=== PATIENT | male | born 1935 | race Caucasian/White ===

== ENCOUNTER 2017-02-03 21:05 | Inpatient (IN) | payer OTHER ==
[~2017-02-03] VITALS: Ht 177.8 cm; Wt 153.5 kg
[~2017-02-03 21:05] MED LIST: A&D OINTMENT60 GM PO; ACETAMINOPHEN325 M1 PO; ADVAIR HFA120 INHALA IH; ALTACE2.5 MG PO; AMIODARONE HCL200 MG PO; AMITIZA24 MICROGR PO; ANALGESIC BALM28 GM TP; ANIMAL CHEWS1 EACH PO; ANTIFUNGAL POWDER TP; ANTIFUNGAL15 G1 TP; ASPIR-LOW81 MG PO; ASPIRIN81 M1; ASPIRIN81 M2 PO; ATHENOL325 MG PO; Advair HFA 115/21 IH; Ancef,Kefzol IV; Aspirin E.C. PO; BACTRIM,SEPT1 TABLET PO; BALANCE; BALANCE MM; BALANCE PO; BAYER CHEWABLE81 MG PO; BENGAY ULTRA S113 GM TP; BIOTENE ORALBAL42 GM MM; CALCIUM 600 +1 EA16 PO; CALCIUM 600 +1 EAC2 PO; CALCIUM WITH V1 EAC2 PO; CAPOTEN; CAPOTEN12.5 MG PO; CARVEDILOL6.25 MG PO; CEFDINIR300 MG PO; CEFEPIME HCL1 GM IV; CEFEPIME HCL1 GM PO; CENTRUM SILVER1 EAC3 PO; CHILDREN'S ASPI81 M1 PO; CHILDREN'S100 MG/55 PO; CIPRO500 MG PO; CLARITIN,ALAVAR10 MG PO; CLARITIN10 M3 PO; CLINDAMYCIN HC300 MG PO; COLACE100 MG PO; CORDARONE200 MG PO; COREG12.5 M1 PO; COREG25 M1; COREG6.25 M1 PO; CRANBERRY425 MG PO; Colace PO; Coreg PO; DAILY VALUE1 EACH PO; DAILY VITAMIN1 EAC4 PO; DAILY VITAMIN1 EAC8 PO; DAILY VITE1 EAC1 PO; DOCUSATE SODIU100 MG PO; DULCOLAX10 MG PR; DUONEB 2.5-0.5 M3 ML AEROSOL; DYNAPEN 250 MG250 MG PO; Dextrose 50% in Wate IV; FAMOTIDINE20 MG PO; FERROUS SULFAT325 MG PO; FINASTERIDE5 MG PO; FISH OIL 1,0001 EAC7 PO; FISH OIL CONC1 EACH; FISH OIL SOFTG1 EAC1; FLEET ENEMA-AD118 ML PR; FLOMAX0.4 M1; FLOMAX0.4 MG PO; FLONASE16 G1 BOTH NARES; FUROSEMIDE40 MG PO; Flomax PO; GABAPENTIN300 MG PO; GABAPENTIN600 MG PO; GLUCAGEN1 MG IM/SC; HEPARIN SO5000 UNITS SC; HUMULIN N100 UNIT/2 SC; HUMULIN N100 UNITS/ SC; HUMULIN N300 UNIT/3 SC; HYDROCHLOROTH12.5 M1; Heparin Sodium SC; IPRATR-ALBUTEROL3 ML IH; IRON325 MG PO; JANUVIA100 MG; K-DUR20 MEQ PO; K-Dur PO; K-TAB10 MEQ PO; KEFLEX500 MG PO; KETOCONAZOLE60 GM TP; KLOR-CON M2020 MEQ PO; LASIX20 MG PO; LASIX40 MG PO; LASIX80 MG PO; LEVAQUIN750 MG PO; LEVO-T112 MCG PO; LEVOTHYROXINE125 MCG PO; LEVOTHYROXINE150 MCG PO; LEVOTHYROXINE175 MCG PO; LEVOTHYROXINE25 MCG PO; LEVOTHYROXINE50 MCG; LIDODERM700 MG; LISINOPRIL2.5 MG PO; LO-DOSE ASPIRIN81 M1 PO; LORATADINE10 M2 PO; LOTRIMIN AF133 GM TP; LOVAZA1 GM PO; LOW DOSE ASPIRI81 M1 PO; LYRICA75 MG; Lasix PO; Levothroid,Synthroid PO; Lovenox SC; MAGNESIUM250 M1; METOLAZONE2.5 MG PO; METOLAZONE5 MG PO; MICRO-K10 ME2 PO; MILK OF MAGN PO; MILK OF MAGNESI10 ML PO; MIRALAX17 GM PO; MIRALAX255 GM PO; MITRAZOL POWDER30 GM TP; MULTIVITAMIN1 EAC1; NEURONTIN100 MG PO; NEURONTIN300 MG PO; NEURONTIN400 MG PO; NEURONTIN600 MG PO; NEURONTIN800 MG PO; NOVOLIN N100 UNITS/ SC; NOVOLOG PE100 UNITS/ SC; NPH HumuLIN SC; Neurontin PO; Nizoral 2% Cream TP; Normal Saline,NaCl 0 IV; OCEAN NASAL 0.645 ML BOTH NARES; OMEGA-31000 M1 PO; OMNICEF300 MG PO; ONE-A-DAY ESSE1 EAC1 PO; ONGLYZA2.5 MG PO; OS-CAL 500+D T1 EAC1 PO; Oscal 500 w/Vitamin PO; PHILLIPS'400 MG/5 M PO; POLYETHYLENE GL17 GM PO; POTASSIUM CHLO20 ME1 PO; PRINIVIL10 MG PO; PROSCAR5 MG PO; Proscar PO; RANITIDINE HCL150 MG PO; REFRESH TEARS15 ML BOTH EYES; REMEDY NUTRASHI59 ML TP; ROBAFEN CF SYR118 M1 PO; ROBITUSSIN100 MG/5 M PO; Rocephin IV; SALINE NASAL SP45 ML BOTH NARES; SENNA PLUS TAB1 EACH PO; SENNA8.6 M1 PO; SENNA8.6 MG PO; SENOKOTXTRA17.2 MG PO; SILVADENE20 GM TP; ST. JOSEPH ASPI81 MG PO; SYNTHROID100 MCG PO; SYNTHROID125 MCG PO; SYNTHROID175 MCG PO; Senokot S,Pericolace PO; Senokot,Sennagen PO; TAMSULOSIN HCL0.4 MG PO; TIROSINT125 MCG PO; TRADJENTA5 MG PO; TRAMADOL HCL50 MG; TYLENOL EXTRA500 MG PO; TYLENOL REGULA325 MG PO; Theragran PO; ULTRAM50 MG PO; Vancomycin Pulse Dos IV; WELCHOL625 MG PO; Xylocaine 5% TP; ZANTAC150 MG PO; ZAROXOLYN2.5 MG PO; ZAROXOLYN5 MG PO; ZITHROMAX250 MG PO; Zaroxolyn,Diulo PO; Zeasorb Antifungal T TP; [UNRECOGNIZED DRUG - OTHER]; [UNRECOGNIZED DRUG - OTHER] PO; [UNRECOGNIZED DRUG - OTHER] TP
[2017-02-03 22:05] LABS: HEMATOCRIT 35.7 % (38.0-50.0); MCH 30.2 PG (29.0-34.0); MCHC 31.9 G/DL (30.0-36.0); MCV 94.4 FL (86-99); MEAN PLAT.VOLUME 11.1 uM^3 (9.0-12.4); PLATELET COUNT 85 K/uL (156-360); RBC DIS.WIDTH-CV 16.4 % (11.8-14.6); RBC DIS.WIDTH-SD 56.8 % (39-53); RED BLOOD COUNT 3.78 M/uL (4.00-5.50); WHITE BLOOD COUNT 5.3 K/uL (4.1-10.2)
[2017-02-03 22:16] LABS: CHLORIDE 106 mEq/L (99-109); POTASSIUM 4.8 mEq/L (3.7-5.4); SODIUM 144 mEq/L (136-147)
[2017-02-03 22:18] LABS: GLUCOSE 120 mg/dL (70-99)
[2017-02-03 22:19] LABS: ANION GAP 9 MEQ/L (2-14)
[2017-02-03 22:22] LABS: GFR ESTIMATE (CALCULATED) 52 mL/min/
[2017-02-03 22:23] LABS: UREA NITROGEN (BUN) 38 mg/dL (9-23)
[2017-02-03 22:28] LABS: TROP-I INTERPRETATION NEGATIVE; TROPONIN-I 0.04 ng/mL (0.0-0.30)
[2017-02-03] MEDS ORDERED: METOLAZONE2.5 MG PO (23:15)
[2017-02-03] MEDS ORDERED: LEXAPRO5 MG PO (23:22)
[2017-02-03] MEDS ORDERED: GABAPENTIN600 MG PO (23:23)
[2017-02-03] MEDS ORDERED: AUGMENTIN875 MG PO (23:25)
[2017-02-03] MEDS ORDERED: ACIDOPHILUS1 EAC3 PO (23:26)
[2017-02-03] MEDS ORDERED: NATURAL BALANCE15 M1 BOTH EYES (23:32)
[2017-02-04 02:28] VITALS: BP 127/76
[2017-02-04 08:06] VITALS: BP 130/75
[2017-02-04 11:16] LABS: POINT-OF-CARE METER ID UU14174216
[2017-02-04 11:37] VITALS: BP 106/55
[2017-02-04 14:03] LABS: TROP-I INTERPRETATION NEGATIVE; TROPONIN-I 0.05 ng/mL (0.0-0.30)
[2017-02-04 15:07] VITALS: BP 97/54
[2017-02-04 16:11] LABS: METH RESISTANT S AUREUS PCR POSITIVE (NEGATIVE)
[2017-02-04 16:13] LABS: PROBE CHECK PASS
[2017-02-04 16:37] LABS: POINT-OF-CARE METER ID UU14174216
[2017-02-04 20:00] VITALS: BP 118/61
[2017-02-04 22:22] LABS: POINT-OF-CARE USER ID NUTSLF44
[2017-02-04 23:55] VITALS: BP 120/65
[2017-02-05 04:00] VITALS: BP 116/70
[2017-02-05 07:15] VITALS: BP 126/73
[2017-02-05 11:35] VITALS: BP 118/63
[2017-02-05] MEDS ORDERED: CARVEDILOL3.125 MG PO (15:26)
[2017-02-05 16:18] VITALS: BP 104/55
== END 2017-02-05 18:14 | DRG 309 ==
LOC: EME → EDBD 21:05 → 4EAST 23:17 → EDOF 23:17 → 4EAST 02-04 02:09
PROVIDERS: Emergency Medicine; Internal Medicine; Internal Medicine Cardiovascular Disease
DX: I47.2 Ventricular tachycardia (principal); I50.22 Chronic systolic (congestive) heart failure; J44.0 Chronic obstructive pulmonary disease with (acute) lower respiratory infection; J20.9 Acute bronchitis, unspecified; I13.0 Hypertensive heart and chronic kidney disease with heart failure and stage 1 through stage 4 chronic kidney disease, or unspecified chronic kidney disease; N18.3 Chronic kidney disease, stage 3 (moderate); E11.22 Type 2 diabetes mellitus with diabetic chronic kidney disease; R00.1 Bradycardia, unspecified; T44.7X5A Adverse effect of beta-adrenoreceptor antagonists, initial encounter; I25.10 Atherosclerotic heart disease of native coronary artery without angina pectoris; I25.5 Ischemic cardiomyopathy; I25.2 Old myocardial infarction; G47.33 Obstructive sleep apnea (adult) (pediatric); E03.9 Hypothyroidism, unspecified; E66.2 Morbid (severe) obesity with alveolar hypoventilation; Z68.42 Body mass index [BMI] 45.0-49.9, adult; J45.909 Unspecified asthma, uncomplicated; I44.7 Left bundle-branch block, unspecified; Z86.74 Personal history of sudden cardiac arrest; Z74.01 Bed confinement status; Z95.1 Presence of aortocoronary bypass graft; Z79.4 Long term (current) use of insulin
CPT/HCPCS: 71010; 80048; 82948; 83735; 83880; 84484; 85027; 87641; 93005; 94640; 99202; 99281; 99284; J1815

== ENCOUNTER 2017-02-14 20:40 | Inpatient (IN) | payer OTHER ==
[~2017-02-14] VITALS: Ht 182.9 cm; Wt 140.8 kg
[~2017-02-14 20:40] MED LIST changes: +ACIDOPHILUS1 EAC3 PO; +AUGMENTIN875 MG PO; +CARVEDILOL3.125 MG PO; +LEXAPRO5 MG PO; +NATURAL BALANCE15 M1 BOTH EYES
[2017-02-14 21:36] LABS: BASE EXCESS 4.7 mEq/L (-3 to +3); CARBOXY HGB 1.9 % (0-5); COMMENTS - BLOOD GASES A+C+; DEVICE NC; O2 FLOW 4 L/MIN; PCO2 64 mm Hg (35-45); PO2 52 mm Hg (80-100); SITE RR; TOTAL RESP RATE 20 resp/min; pH 7.32 (7.35-7.45)
[2017-02-14 22:29] LABS: EOSINOPHIL (%) 2.3 % (0-5); EOSINOPHIL COUNT 0.1 K/uL (0-0.3); HEMATOCRIT 34.2 % (38.0-50.0); IMMATURE GRANULOCYTE (%) 0.3 % (0.0-0.7); INSTRUMENT ABS NEUTROPHIL CT 2.5 K/uL; LYMPHOCYTE COUNT 0.6 K/uL (1.0-2.8); MCH 29.6 PG (29.0-34.0); MCHC 31.6 G/DL (30.0-36.0); MCV 93.7 FL (86-99); MEAN PLAT.VOLUME 12.1 uM^3 (9.0-12.4); MONOCYTE (%) 8.2 % (3-12); MONOCYTE COUNT 0.3 K/uL (0-0.8); NEUTROPHIL (%) 70.8 % (45-76); NEUTROPHIL COUNT 2.5 K/uL (1.8-6.4); PLATELET COUNT 105 K/uL (156-360); RBC DIS.WIDTH-CV 16.7 % (11.8-14.6); RBC DIS.WIDTH-SD 55.9 % (39-53); RED BLOOD COUNT 3.65 M/uL (4.00-5.50); WHITE BLOOD COUNT 3.5 K/uL (4.1-10.2)
[2017-02-14 22:32] LABS: INTER. NORMALIZED RATIO 1.2; PROTHROMBIN TIME 12.6 (9.2-11.2)
[2017-02-14 22:33] LABS: CHLORIDE 104 mEq/L (99-109); POTASSIUM 5.6 mEq/L (3.7-5.4); SODIUM 138 mEq/L (136-147)
[2017-02-14 22:34] LABS: MAGNESIUM 1.9 mg/dL (1.3-2.7)
[2017-02-14 22:36] LABS: GLUCOSE 73 mg/dL (70-99)
[2017-02-14 22:37] LABS: ANION GAP 8 MEQ/L (2-14)
[2017-02-14 22:38] LABS: TOTAL BILIRUBIN 0.5 mg/dL (0.0-1.0)
[2017-02-14 22:39] LABS: ALKALINE PHOSPHATASE 113 IU/L (3-129)
[2017-02-14 22:40] LABS: GFR ESTIMATE (CALCULATED) 56 mL/min/
[2017-02-14 22:41] LABS: UREA NITROGEN (BUN) 38 mg/dL (9-23)
[2017-02-14 22:45] LABS: TROP-I INTERPRETATION NEGATIVE; TROPONIN-I 0.03 ng/mL (0.0-0.30)
[2017-02-14 22:52] LABS: ADD MIUA? YES; BILIRUBIN NEGATIVE; BLOOD LARGE; COLOR YELLOW ((YELLOW)); GLUCOSE (STRIP) NEGATIVE; KETONES NEGATIVE; LEUKOCYTES LARGE; NITRITE POSITIVE; PROTEIN (STRIP) 100; SPECIFIC GRAVITY 1.015 (1.000-1.030); UROBILINOGEN 0.2 MG/DL (0.2-1.0)
[2017-02-14 23:05] LABS: POINT-OF-CARE METER ID UU14100415
[2017-02-14] MEDS ORDERED: NOVOLIN N100 UNITS/ SC (23:36)
[2017-02-14] MEDS ORDERED: ANTIFUNGAL15 G1 TP (23:38)
[2017-02-14] MEDS ORDERED: ROBITUSSIN100 MG/5 M PO (23:51)
[2017-02-14] MEDS ORDERED: DULCOLAX5 MG PO (23:53)
[2017-02-15] VITALS (7 sets, daily range): BP systolic 102–159; BP diastolic 55–100
[2017-02-15 00:06] LABS: RED BLOOD CELLS TNTC /HPF (0-5); WHITE BLOOD CELLS TNTC /HPF (0-5)
[2017-02-15 00:07] LABS: BACTERIA 3+ /HPF; EPITHELIAL CELLS 1+ /HPF; MUCUS 2+ /LPF; UCUL ADDED? YES
[2017-02-15 07:11] LABS: METH RESISTANT S AUREUS PCR POSITIVE (NEGATIVE)
[2017-02-15 07:17] LABS: PROBE CHECK PASS
[2017-02-15 07:25] LABS: POINT-OF-CARE METER ID UU14149397
[2017-02-15 07:28] LABS: ANION GAP 7 MEQ/L (2-14); CHLORIDE 106 MEQ/L (99-109); GFR ESTIMATE (CALCULATED) 56 mL/min/; SAMPLE HEMOLYSIS CHECK 0; SAMPLE ICTERIC CHECK 0; SAMPLE LIPEMIA CHECK 0; SODIUM 140 MEQ/L (136-147); UREA NITROGEN (BUN) 42 mg/dL (9-23)
[2017-02-15 07:29] LABS: GLUCOSE 98 mg/dL (70-99); POTASSIUM 6.2 MEQ/L (3.7-5.4)
[2017-02-15 13:44] LABS: ANION GAP 10 MEQ/L (2-14); CHLORIDE 104 MEQ/L (99-109); GFR ESTIMATE (CALCULATED) 52 mL/min/; GLUCOSE 131 mg/dL (70-99); POTASSIUM 5.7 MEQ/L (3.7-5.4); SAMPLE HEMOLYSIS CHECK 0; SAMPLE ICTERIC CHECK 0; SAMPLE LIPEMIA CHECK 0; SODIUM 139 MEQ/L (136-147); UREA NITROGEN (BUN) 44 mg/dL (9-23)
[2017-02-15 20:37] LABS: POINT-OF-CARE METER ID UU13113781
[2017-02-16] VITALS (7 sets, daily range): BP systolic 108–122; BP diastolic 54–64
[2017-02-16 07:15] LABS: EOSINOPHIL (%) 0.2 % (0-5); HEMATOCRIT 34.3 % (38.0-50.0); IMMATURE GRANULOCYTE (%) 0.5 % (0.0-0.7); INSTRUMENT ABS NEUTROPHIL CT 4.8 K/uL; LYMPHOCYTE COUNT 0.8 K/uL (1.0-2.8); MCH 29.8 PG (29.0-34.0); MCHC 32.1 G/DL (30.0-36.0); MEAN PLAT.VOLUME 12.1 uM^3 (9.0-12.4); MONOCYTE (%) 13.6 % (3-12); MONOCYTE COUNT 0.9 K/uL (0-0.8); NEUTROPHIL (%) 73.6 % (45-76); NEUTROPHIL COUNT 4.8 K/uL (1.8-6.4); PLATELET COUNT 120 K/uL (156-360); RBC DIS.WIDTH-CV 16.7 % (11.8-14.6); RBC DIS.WIDTH-SD 55.5 % (39-53); RED BLOOD COUNT 3.69 M/uL (4.00-5.50)
[2017-02-16 07:25] LABS: WHITE BLOOD COUNT 6.5 K/uL (4.1-10.2)
[2017-02-16 08:07] LABS: ANION GAP 9 MEQ/L (2-14); CHLORIDE 104 MEQ/L (99-109); GFR ESTIMATE (CALCULATED) 39 mL/min/; SAMPLE HEMOLYSIS CHECK 0; SAMPLE ICTERIC CHECK 0; SAMPLE LIPEMIA CHECK 0; SODIUM 143 MEQ/L (136-147); UREA NITROGEN (BUN) 47 mg/dL (9-23)
[2017-02-16 08:08] LABS: GLUCOSE 81 mg/dL (70-99)
[2017-02-16 10:39] LABS: POINT-OF-CARE METER ID UU13113781
[2017-02-16 21:00] LABS: POINT-OF-CARE METER ID UU14174216
[2017-02-17 04:20] VITALS: BP 118/60
[2017-02-17 05:39] LABS: EOSINOPHIL (%) 1.7 % (0-5); EOSINOPHIL COUNT 0.1 K/uL (0-0.3); HEMATOCRIT 33.7 % (38.0-50.0); IMMATURE GRANULOCYTE (%) 0.2 % (0.0-0.7); INSTRUMENT ABS NEUTROPHIL CT 2.3 K/uL; LYMPHOCYTE COUNT 1.1 K/uL (1.0-2.8); MCH 30.7 PG (29.0-34.0); MCHC 32.9 G/DL (30.0-36.0); MCV 93.1 FL (86-99); MEAN PLAT.VOLUME 11.8 uM^3 (9.0-12.4); MONOCYTE (%) 14.8 % (3-12); MONOCYTE COUNT 0.6 K/uL (0-0.8); NEUTROPHIL (%) 56.9 % (45-76); NEUTROPHIL COUNT 2.3 K/uL (1.8-6.4); PLATELET COUNT 112 K/uL (156-360); RBC DIS.WIDTH-CV 16.8 % (11.8-14.6); RBC DIS.WIDTH-SD 56.7 % (39-53); RED BLOOD COUNT 3.62 M/uL (4.00-5.50)
[2017-02-17 05:41] LABS: WHITE BLOOD COUNT 4.1 K/uL (4.1-10.2)
[2017-02-17 05:47] LABS: ANION GAP 9 MEQ/L (2-14); CHLORIDE 98 MEQ/L (99-109); GFR ESTIMATE (CALCULATED) 41 mL/min/; SAMPLE HEMOLYSIS CHECK 0; SAMPLE ICTERIC CHECK 0; SAMPLE LIPEMIA CHECK 0; SODIUM 138 MEQ/L (136-147); UREA NITROGEN (BUN) 46 mg/dL (9-23)
[2017-02-17 05:48] LABS: GLUCOSE 102 mg/dL (70-99)
[2017-02-17 08:12] VITALS: BP 106/52
[2017-02-17 11:15] VITALS: BP 98/50
[2017-02-17 11:43] LABS: POINT-OF-CARE METER ID UU14174216
[2017-02-17 16:00] VITALS: BP 102/62
[2017-02-17 19:50] VITALS: BP 110/64
[2017-02-17 20:44] LABS: POINT-OF-CARE METER ID UU13113781
[2017-02-18 00:31] VITALS: BP 112/68
[2017-02-18 03:54] VITALS: BP 108/66
[2017-02-18 04:39] LABS: EOSINOPHIL (%) 1.8 % (0-5); EOSINOPHIL COUNT 0.1 K/uL (0-0.3); HEMATOCRIT 35.1 % (38.0-50.0); IMMATURE GRANULOCYTE (%) 0.2 % (0.0-0.7); INSTRUMENT ABS NEUTROPHIL CT 3.9 K/uL; LYMPHOCYTE COUNT 0.9 K/uL (1.0-2.8); MCHC 32.8 G/DL (30.0-36.0); MCV 91.6 FL (86-99); MEAN PLAT.VOLUME 11.2 uM^3 (9.0-12.4); MONOCYTE (%) 11.4 % (3-12); MONOCYTE COUNT 0.6 K/uL (0-0.8); NEUTROPHIL COUNT 3.9 K/uL (1.8-6.4); PLATELET COUNT 113 K/uL (156-360); RBC DIS.WIDTH-CV 16.1 % (11.8-14.6); RBC DIS.WIDTH-SD 54.4 % (39-53); RED BLOOD COUNT 3.83 M/uL (4.00-5.50); WHITE BLOOD COUNT 5.5 K/uL (4.1-10.2)
[2017-02-18 04:51] LABS: CHLORIDE 98 mEq/L (99-109); POTASSIUM 3.9 mEq/L (3.7-5.4); SODIUM 140 mEq/L (136-147)
[2017-02-18 04:52] LABS: GLUCOSE 134 mg/dL (70-99)
[2017-02-18 04:54] LABS: ANION GAP 10 MEQ/L (2-14)
[2017-02-18 04:56] LABS: GFR ESTIMATE (CALCULATED) 36 mL/min/
[2017-02-18 04:57] LABS: UREA NITROGEN (BUN) 45 mg/dL (9-23)
[2017-02-18 10:23] VITALS: BP 108/64
[2017-02-18 13:06] VITALS: BP 106/68
[2017-02-18 15:30] VITALS: BP 100/60
[2017-02-18 21:19] LABS: POINT-OF-CARE USER ID ENVMNS
[2017-02-18 21:37] VITALS: BP 78/36
[2017-02-19] VITALS (26 sets, daily range): BP systolic 60–124; BP diastolic 29–54
[2017-02-19 04:59] LABS: CHLORIDE 95 mEq/L (99-109); POTASSIUM 3.8 mEq/L (3.7-5.4); SODIUM 136 mEq/L (136-147)
[2017-02-19 05:01] LABS: GLUCOSE 131 mg/dL (70-99)
[2017-02-19 05:02] LABS: ANION GAP 8 MEQ/L (2-14)
[2017-02-19 05:04] LABS: GFR ESTIMATE (CALCULATED) 28 mL/min/
[2017-02-19 05:05] LABS: UREA NITROGEN (BUN) 51 mg/dL (9-23)
[2017-02-19 07:26] LABS: POINT-OF-CARE METER ID UU13113781
[2017-02-19 07:41] LABS: BASE EXCESS 9.1 mEq/L (-3 to +3); BICARBONATE 36.4 mEq/L (22-26); CARBOXY HGB 2.5 % (0-5); METHEMOGLOBIN 1.4 % (0-1.5); PCO2 63 mm Hg (35-45); PO2 58 mm Hg (80-100); SITE LB; pH 7.37 (7.35-7.45)
[2017-02-19 07:42] LABS: COMMENTS - BLOOD GASES C+; DEVICE NC; O2 FLOW 1 L/MIN; TOTAL RESP RATE 20 resp/min
[2017-02-19 08:23] LABS: HEMATOCRIT 35.9 % (38.0-50.0); MCH 30.3 PG (29.0-34.0); MCHC 32.9 G/DL (30.0-36.0); MCV 92.1 FL (86-99); MEAN PLAT.VOLUME 11.2 uM^3 (9.0-12.4); PLATELET COUNT 102 K/uL (156-360); RBC DIS.WIDTH-CV 16.2 % (11.8-14.6); RBC DIS.WIDTH-SD 54.4 % (39-53); WHITE BLOOD COUNT 6.7 K/uL (4.1-10.2)
[2017-02-19 14:14] LABS: Estimated Average Glucose 131 mg/dL (70-123); HEMOGLOBIN A1c (GLYCOHEMOGLOB) 6.2 % HGB (Below 5.7)
[2017-02-19 17:55] LABS: POINT-OF-CARE METER ID UU14162636
[2017-02-19 22:14] LABS: POINT-OF-CARE USER ID LABHNS84
[2017-02-20] VITALS: BP 63/31
[2017-02-20 04:00] VITALS: BP 69/37
[2017-02-20 05:00] VITALS: BP 96/49
[2017-02-20 06:00] VITALS: BP 96/40
[2017-02-20 07:00] VITALS: BP 82/57
[2017-02-20 07:15] LABS: ALKALINE PHOSPHATASE 95 IU/L (3-129); ANION GAP 11 MEQ/L (2-14); CHLORIDE 90 MEQ/L (99-109); GLUCOSE 177 mg/dL (70-99); POTASSIUM 4.4 MEQ/L (3.7-5.4); SAMPLE HEMOLYSIS CHECK 2; SAMPLE ICTERIC CHECK 0; SAMPLE LIPEMIA CHECK 0; TOTAL BILIRUBIN 0.9 MG/DL (0.0-1.0); UREA NITROGEN (BUN) 53 mg/dL (9-23)
[2017-02-20 07:16] LABS: GFR ESTIMATE (CALCULATED) 21 mL/min/; SODIUM 129 MEQ/L (136-147)
[2017-02-20 08:00] VITALS: BP 99/50
[2017-02-20 12:08] LABS: POINT-OF-CARE METER ID UU14162636
[2017-02-20 16:53] LABS: POINT-OF-CARE METER ID UU14174217
[2017-02-20 20:04] LABS: COLOR AMBER ((YELLOW))
[2017-02-20 20:05] LABS: BILIRUBIN NEGATIVE; GLUCOSE (STRIP) NEGATIVE; KETONES NEGATIVE; SPECIFIC GRAVITY 1.015 (1.000-1.030)
[2017-02-20 20:06] LABS: BLOOD LARGE; LEUKOCYTES MODERATE; NITRITE NEGATIVE
[2017-02-20 20:07] LABS: ADD MIUA? YES; PROTEIN (STRIP) 300; UROBILINOGEN 0.2 MG/DL (0.2-1.0)
[2017-02-20 20:21] LABS: CASTS NONE SEEN /LPF; EPITHELIAL CELLS RARE /HPF; MUCUS NONE SEEN /LPF
[2017-02-20 20:24] LABS: RED BLOOD CELLS TNTC /HPF (0-5); WHITE BLOOD CELLS 20-30 /HPF (0-5)
[2017-02-20 20:25] LABS: BACTERIA 1+ /HPF; UCUL ADDED? NO
== END 2017-02-21 02:00 | DRG 871 ==
LOC: EME → EDBD 20:40 → 4EAST 22:50 → 4WEST 22:50 → EDOF 22:50 → 3EAST 22:50 → 4EAST 02-15 08:02 → 4WEST 02-19 08:01
PROVIDERS: Emergency Medicine; Hospitalist; Internal Medicine; Physician Assistant Medical; Specialist
DX: A41.9 Sepsis, unspecified organism (principal); R68.0 Hypothermia, not associated with low environmental temperature; R57.0 Cardiogenic shock; J18.9 Pneumonia, unspecified organism; J96.01 Acute respiratory failure with hypoxia; I50.23 Acute on chronic systolic (congestive) heart failure; I25.5 Ischemic cardiomyopathy; R65.21 Severe sepsis with septic shock; E66.01 Morbid (severe) obesity due to excess calories; R41.82 Altered mental status, unspecified; D64.9 Anemia, unspecified; E66.2 Morbid (severe) obesity with alveolar hypoventilation; I12.9 Hypertensive chronic kidney disease with stage 1 through stage 4 chronic kidney disease, or unspecified chronic kidney disease; N18.3 Chronic kidney disease, stage 3 (moderate); E03.9 Hypothyroidism, unspecified; E87.5 Hyperkalemia; I42.9 Cardiomyopathy, unspecified; J44.9 Chronic obstructive pulmonary disease, unspecified; J98.11 Atelectasis; I47.2 Ventricular tachycardia; E11.9 Type 2 diabetes mellitus without complications; R57.9 Shock, unspecified; G47.33 Obstructive sleep apnea (adult) (pediatric); N17.9 Acute kidney failure, unspecified; N39.0 Urinary tract infection, site not specified; I44.7 Left bundle-branch block, unspecified; R33.9 Retention of urine, unspecified; R00.1 Bradycardia, unspecified; Z68.41 Body mass index [BMI] 40.0-44.9, adult; F32.9 Major depressive disorder, single episode, unspecified; E87.1 Hypo-osmolality and hyponatremia; Z66 Do not resuscitate; Z82.49 Family history of ischemic heart disease and other diseases of the circulatory system; Z22.322 Carrier or suspected carrier of Methicillin resistant Staphylococcus aureus; Z51.5 Encounter for palliative care
CPT/HCPCS: 36600; 36620; 70450; 71010; 80048; 80048 91; 80053; 80202; 81003; 82803; 82948; 83036; 83605; 83735; 83880; 84443; 84484; 85025; 85025 91; 85027; 85610; 87040; 87077; 87086; 87641; 87801; 92610 GN; 93005; 94660; 94799; 99202; 99281; 99285; J0692; J1100; J1160; J1250; J1644; J1650; J1815; J1940; J1956; J2270; J2310; J2405; J3370; J7030; J7050; J7070; P9047